=== PATIENT | female | born 1985 ===

== ENCOUNTER 2022-05-26 00:24 | Inpatient (IN) | payer BC ==
[2022-05-26] MEDS ORDERED: Lidocaine 1% 50 ML MDV INJECT PRN (04:00)
[2022-05-26] MEDS ORDERED: Misoprostol 200 MCG Tab PO PRN (04:00)
[2022-05-26] MEDS ORDERED: Lactated Ringers 1,000 ML IV SCH (04:00)
[2022-05-26] MEDS ORDERED: Methylergonovine 0.2 MG/1 ML Amp IM PRN (04:00)
[2022-05-26] MEDS ORDERED: Oxytocin/0.9 % Sodium Chloride 30 UNIT/500 ML BAG IV SCH (04:00)
[2022-05-26] MEDS ORDERED: Butorphanol 1 MG/ML SDV IVPUSH PRN (04:00)
[2022-05-26] MEDS ORDERED: Carboprost Tromethamine 250 MCG/1 ML Amp IM PRN (04:00)
[2022-05-26] MEDS ORDERED: Water For Irrigation,Sterile 1,000 ML Container IRR PRN (04:00)
[2022-05-26] MEDS ORDERED: Tranexamic Acid 1,000 MG in Sodium Chloride 0.9% 100 ML IV PRN (04:00)
[2022-05-26] MEDS ORDERED: Sodium Chloride 0.9% 2.5 ML Syringe FLUSH PRN (05:18)
[2022-05-26] MEDS ORDERED: Sodium Chloride 0.9% 10 ML Syringe FLUSH PRN (05:18)
[2022-05-26] MEDS ORDERED: Sodium Chloride 0.9% 20 ML SDV IV PRN (05:18)
[2022-05-26] MEDS ORDERED: Ropivacaine/PF 400 MG/200 ML PCA ONE (19:36)
[2022-05-26] MEDS ORDERED: ePHEDrine 50 MG/ML SDV IVPUSH PRN (21:21)
[2022-05-26] MEDS ORDERED: Phenylephrine HCl In 0.9% NaCl 1 MG/10 ML Vial IVPUSH SCH (21:30)
[2022-05-26] MEDS ORDERED: Ropivacaine HCl/PF 400 MG in Premix Bag 1 BAG EPIDUR SCH (21:30)
[2022-05-27] MEDS ORDERED: Oxytocin/0.9 % Sodium Chloride 30 UNIT/500 ML BAG IV SCH (01:45)
[2022-05-27] MEDS ORDERED: Acetaminophen 500 MG Tab PO PRN (01:49)
[2022-05-27] MEDS ORDERED: Acetaminophen 500 MG Tab ONE (01:51)
[2022-05-27] MEDS ORDERED: Sodium Chloride 0.9% 100 ML ONE (03:03)
[2022-05-27] MEDS: Ampicillin 2 GM in Sodium Chloride 0.9% 100 ML IV SCH ×4 (03:11→22:13)
[2022-05-27] MEDS ORDERED: Dexmedetomidine 200 MCG/2 ML SDV ONE (04:09)
[2022-05-27] MEDS ORDERED: Ropivacaine 0.5% 5 MG/ML 30 ML SDV ONE (04:09)
[2022-05-27] MEDS ORDERED: Ondansetron 4 MG/2 ML SDV ONE (04:09)
[2022-05-27] MEDS ORDERED: Oxytocin 10 Units/1 ML SDV ONE (04:09)
[2022-05-27] MEDS ORDERED: Phenylephrine HCl In 0.9% NaCl 1 MG/10 ML Vial ONE (04:09)
[2022-05-27] MEDS ORDERED: ceFAZolin 1 GM Vial ONE (04:09)
[2022-05-27] MEDS ORDERED: Dexamethasone 4 MG/ML 5 ML MDV ONE (04:09)
[2022-05-27] MEDS ORDERED: Water For Injection, Sterile 40 ML ONE (04:09)
[2022-05-27] MEDS ORDERED: Azithromycin 500 MG Vial ONE (04:10)
[2022-05-27] MEDS ORDERED: Morphine PF 10 MG/10 ML SDV ONE (04:11)
[2022-05-27] MEDS ORDERED: Sodium Chloride 0.9% 250 ML ONE (04:12)
[2022-05-27] MEDS ORDERED: Water For Injection, Sterile 20 ML ONE (04:17)
[2022-05-27] MEDS ORDERED: Lidocaine 2% with EPINEPHrine 1:200,000 20 ML SDV ONE (04:58)
[2022-05-27] MEDS ORDERED: fentaNYL 100 MCG/2 ML SDV IVPUSH PRN (05:15)
[2022-05-27] MEDS ORDERED: Ondansetron 4 MG/2 ML SDV IVPUSH PRN ×2 (05:15→06:20)
[2022-05-27] MEDS ORDERED: Naloxone 0.4 MG/ML SDV IVPUSH PRN (05:15)
[2022-05-27] MEDS ORDERED: diphenhydrAMINE 50 MG/ML SDV IVPUSH PRN ×2 (05:15→06:20)
[2022-05-27] MEDS ORDERED: Acetaminophen/oxyCODONE 325-5 MG Tab PO PRN ×3 (05:15→06:20)
[2022-05-27] MEDS ORDERED: ePHEDrine 50 MG/ML SDV IVPUSH PRN (05:16)
[2022-05-27] MEDS ORDERED: Phenylephrine HCl In 0.9% NaCl 1 MG/10 ML Vial IVPUSH SCH (05:30)
[2022-05-27] MEDS: Azithromycin 500 MG in Sodium Chloride 0.9% 250 ML IV SCH (05:57)
[2022-05-27] MEDS ORDERED: Misoprostol 200 MCG Tab RECTAL PRN (06:20)
[2022-05-27] MEDS ORDERED: Methylergonovine 0.2 MG/1 ML Amp IM PRN (06:20)
[2022-05-27] MEDS ORDERED: Oxytocin 10 Units/1 ML SDV IM PRN (06:20)
[2022-05-27] MEDS ORDERED: Bisacodyl 10 MG Supp RECTAL PRN (06:20)
[2022-05-27] MEDS ORDERED: Tranexamic Acid 1,000 MG in Sodium Chloride 0.9% 100 ML IV PRN (06:20)
[2022-05-27] MEDS ORDERED: Lactated Ringers 1,000 ML IV SCH (06:30)
[2022-05-27] MEDS: Lanolin 100% Cream 7 GM Tube TOP PRN (10:00)
[2022-05-27] MEDS: Docusate Sodium 100 MG Cap PO SCH ×2 (10:00→22:14)
[2022-05-27] MEDS: Ketorolac 30 MG/ML SDV IVPUSH SCH ×2 (13:05→18:44)
[2022-05-28] MEDS: Ketorolac 30 MG/ML SDV IVPUSH SCH ×3 (00:26→13:08)
[2022-05-28] MEDS: Ampicillin 2 GM in Sodium Chloride 0.9% 100 ML IV SCH ×4 (05:17→22:06)
[2022-05-28] MEDS: Azithromycin 500 MG in Sodium Chloride 0.9% 250 ML IV SCH (06:01)
[2022-05-28] MEDS: Docusate Sodium 100 MG Cap PO SCH ×2 (10:05→21:00)
[2022-05-28] MEDS: Ibuprofen 800 MG Tab PO PRN (20:37)
[2022-05-29] MEDS: Ibuprofen 800 MG Tab PO PRN ×2 (04:38→15:14)
[2022-05-29] MEDS: Docusate Sodium 100 MG Cap PO SCH (16:43)
[2022-05-30] MEDS: Ibuprofen 800 MG Tab PO PRN (05:49)
[2022-05-30] MEDS: Lanolin 100% Cream 7 GM Tube TOP PRN (05:51)
== END 2022-05-30 06:00 | disposition home or self-care (01) | DRG 540 ==
LOC: MW.OBCHECK 00:24 → MW.OB 00:58 → MW.OBCHECK 05-27 03:29 → MW.OB 05-27 03:30 → OBSVTOIN 05-27 03:48 → MW.OB 05-27 12:00
PROVIDERS: ADMIT Obstetrics & Gynecology; ATTEND Obstetrics & Gynecology
PROC: 10D00Z1 Extraction of Products of Conception, Low, Open Approach (ICD-10-PCS; principal; 2022-05-27)
DX: O48.0 Post-term pregnancy (principal); Z3A.41 41 weeks gestation of pregnancy; Z37.0 Single live birth; O76 Abnormality in fetal heart rate and rhythm complicating labor and delivery; O41.1230 Chorioamnionitis, third trimester, not applicable or unspecified; O77.0 Labor and delivery complicated by meconium in amniotic fluid
CPT/HCPCS: 01967; 01968; 36415; 64488; 74018; 74018-26; 82803; 85014; 85018; 85027; 86592; 86850; 86900; 86901; 86920; A9270-GY; J0290; J0456; J0690; J1100; J1580; J1885; J2274; J2405; J2590; J2795; J3490; J7050; J7120; U0002